=== PATIENT | male | born 1990 | race Caucasian/White ===

== ENCOUNTER 2021-10-07 08:53 | Day surgery (SDC) | payer SELFPAY ==
--- NOTE | 2021-10-03 16:29 | RAD REPORT ---
EXAM DESCRIPTION: RAD - Chest Pa And Lat (2 Views) - 10/03/2021 4:20 pm CLINICAL HISTORY: pre op COMPARISON: No comparisons FINDINGS: Lines: None. Lungs: No evidence of edema or pneumonia. Pleural: No significant pleural effusions or pneumothorax. Cardiac: The heart size is within normal limits. Bones: No acute fractures. Other: IMPRESSION: No acute cardiopulmonary disease.
[2021-10-07] MEDS ORDERED: Ringers Lactate 1,000 ML IV ONE (09:23)
[2021-10-07] MEDS ORDERED: propofoL 200 MG/20 ML VIAL IV ONE (09:26)
[2021-10-07] MEDS ORDERED: ROCURONIUM 50 MG/5 ML VIAL IV ONE ×2 (09:26→11:49)
[2021-10-07] MEDS ORDERED: LIDOCAINE 1% MPF 5 ML VIAL ONE (09:26)
[2021-10-07] MEDS ORDERED: FENTANYL CITR 100 MCG/2 ML ONE ×2 (09:26→11:27)
[2021-10-07] MEDS ORDERED: SUGAMMADEX SODIUM 200 MG/2 ML VIAL IV ONE (09:29)
[2021-10-07] MEDS ORDERED: MIDAZOLAM HCL 2 MG/2 ML INJ ONE ×2 (09:29→10:22)
[2021-10-07] MEDS ORDERED: CELECOXIB 100 MG CAPSULE ONE (09:52)
[2021-10-07] MEDS ORDERED: ACETAMINOPHEN 500 MG TAB ONE (09:52)
[2021-10-07] MEDS ORDERED: SCOPOLAMINE HYDROBROMIDE PATCH TD ONE (09:55)
[2021-10-07] MEDS: CLINDAMYCIN INJ 900 MG in NA CHLORIDE 0.9% 50 ML IV ONE ×3 (09:57→10:57)
[2021-10-07] MEDS ORDERED: LIDOCAINE 4% TOP SOLUTION ONE (10:40)
[2021-10-07] MEDS ORDERED: EPINEPHRINE/PF 1 MG/ML AMP ONE (10:43)
[2021-10-07] MEDS ORDERED: Mastisol Adhesive Liq ONE (10:44)
[2021-10-07] MEDS: LIDOCAINE 1% W/EPI 1:100,000 MDV 50 ML VIAL ONE ×2 (11:09→11:14)
[2021-10-07] MEDS ORDERED: OXYMETAZOLINE HCL 0.05% 15ML NAS ONE (11:41)
[2021-10-07] MEDS ORDERED: GLYCOPYRROLATE 0.2 MG/ML SYR ONE (12:47)
[2021-10-07] MEDS ORDERED: NEOSTIGMINE 1 MG/ML -5 ML ONE (12:47)
[2021-10-07] MEDS ORDERED: ONDANSETRON 4 MG/2 ML VIAL ONE (13:26)
[2021-10-07] MEDS ORDERED: dexAMETHasone 10 MG/ML VIAL ONE (13:26)
[2021-10-07] MEDS: FENTANYL CITR 100 MCG/2 ML ONE ×2 (13:35→13:40)
[2021-10-07 13:52] VITALS: TEMP 97.4; O2SAT 100
[2021-10-07 14:59] VITALS: BP 142/75
--- NOTE | 2021-10-08 19:13 | OP ---
Date of Procedure: 10/07/2021 Surgeon: MARY CONTI Primary Care Physician: Unknown. Preoperative Diagnoses: 1.Cervical lymphadenitis. 2.Uvula, right soft palate, and right base of tongue neoplasms-uncertain behavior. Postoperative Diagnoses: 1.Cervical lymphadenitis. 2.Uvula, right soft palate, and right base of tongue neoplasms-uncertain behavior. Procedures: 1.Microsuspension direct laryngoscopy with biopsies of right base of tongue, uvula, right soft palat e. 2.Excision of right level 1B lymph node. 3.Core biopsies taken from right level IIA lymph node. Anesthesia: General endotracheal anesthesia was administered. Epinephrine soaked nasal pledgets wer e used for hemostasis. Specimens: Obtained from uvula, right base of tongue, right soft palate, and right upper neck level 1B and level 2A were submitted to pathology for evaluation. Estimated Blood Loss: Less than 5 mL. Findings: Friable, indurated neoplasms involving the uvula, right soft palate and right base of tong ue. Enlarged lymph node involving level 1B of the right upper neck measuring approximately 3.0 x 2.0 cm. The patient also had a significantly enlarged right upper neck level 2 lymph node that was at l east 6 cm and matted to important structures of the deep neck, including the internal jugular vein an d possibly the carotid sheath. Complications: None. Disposition: Stable. The patient tolerated the procedure well. Indication For Procedure: The patient is a 31-year-old male who presented to my outpatient clinic wi th a gradually enlarging lymph node involving the right upper neck. CT scan showed multiple diffuse enlarged lymph nodes, not only involving that level of the neck at all levels of the neck. On exam, he had multiple palpable lymph nodes with the larger 1 involving the right level 2 neck as well as th e right level 1B neck. The examination also revealed neoplasms involving the uvula, right soft palat e and right base of tongue. These are indications to bring the patient to proceed for the above-ment ioned procedures. His condition has been refractory to multiple outpatient antibiotics. The patient had several questions that were answered. Risks versus benefits and complications were explained in detail and a consent form was signed which was placed in the chart. Description Of Procedure: The patient was transferred from the preoperative holding area to the oper ative suite by Department of Anesthesia, placed on the operating table supine, sedated and intubated in normal fashion. The table was rotated approximately 45 degrees and the patient's neck was flexed and his head was slightly extended. A bite guard was placed on his upper teeth for protection and th en a laryngoscope was introduced into the right oral commissure along the endotracheal tube and suspe nded from the [place] stand. A telescope was used to take pictures of the larynx. There was no evidenc e of laryngeal neoplasms including the true and false vocal folds, arytenoid complex, piriform sinuse s, posterior cricoid area. All areas were examined and found to be clean of any suspicious lesion. The scope was desuspended and the area of the uvula, right soft palate, and base of tongue were visua lized and it took multiple biopsies from each 1 of these areas and they were submitted for pathology evaluation. The left base of tongue was clean as was the epiglottis, vallecula, and oral dorsal tong ue. The scope was completely removed. Bimanual palpation exam was performed with no evidence of any other palpable neoplasms. I utilized a McIvor retractor to do the biopsies of the uvula and right s oft palate as I was able to gain better access to these areas with the McIvor retractor. Next, the McIvor retractor was removed and the patient was placed in the midline position. I had inf iltrated approximately 1% lidocaine with 1:100,000 epinephrine into the area of the right level 1B an d right level IIA areas where the biopsies and excision of a lymph node were to be performed. The pa tient was then sterilely prepped and draped. An incision was made over level 1B and level 2A with a #15 blade scalpel to the level of the platysma and then I switched to needlepoint electrocautery and divided the platysma utilizing that and then h emostasis was achieved with the needlepoint electrocautery. Once down to the subplatysmal compartmen t in the submandibular area, there was a large lymph node present. I dissected around the lymph node utilizing needlepoint electrocautery on the twentieth setting. I have made sure to make my incision at least 2 cm below the mandible in order to stay away from the marginal mandibular nerve. Dissecti on around the lymph node was successful with a needlepoint electrocautery and I was able to completel y remove it. Several vessels were ligated and cut and 3.0 silk was utilized for this part of the pro cedure. The lymph node was completely removed and placed into specimen cup. Hemostasis was achieved with needlepoint electrocautery. I then placed my attention to the large lymph node involving the r ight level 2A compartment. Several core biopsies were taken of the lymph node and submitted to patho logy in a specimen cup. Hemostasis was achieved with needlepoint electrocautery. This particular ly mph node was matted down to the sternocleidomastoid muscle as well as the deeper vessels including th e and what I suspect was the sheath of the internal jugular vein and possibly the carotid sheath. Th us, it was decided to take core biopsies as opposed to trying to remove this enlarged lymph node. Sa line irrigation was introduced into the neck wound and removed with suction Bovie. I then reapproxim ated the platysma with 4-0 Monocryl in a simple interrupted fashion followed by subcutaneous tissue r eapproximation with 4-0 Monocryl in a simple interrupted fashion. I then reapproximated the epidermi s and dermis with a 4-0 Monocryl in a subcuticular fashion. I did place a Ambrosio drain at the later al end of the incision and the [place] drain was a quarter-inch drain. The drain was secured to the neck and compressive dressing was placed. He tolerated procedure well and will be discharged home on analgesic and antibiotics and will follow up in 1-2 days for drain assessment and possible removal. NOEMI/JOHN Voice ID: [id number] Report ID: [id number]
== END 2021-10-07 14:59 | disposition home or self-care (01) ==
LOC: OR 08:53
PROVIDERS: ATTEND Otolaryngology Facial Plastic Surgery
PROC: 0CBM8ZX Excision of Pharynx, Via Natural or Artificial Opening Endoscopic, Diagnostic (ICD-10-PCS; principal; 2021-10-07 10:45)
PROC: 07D13ZX Extraction of Right Neck Lymphatic, Percutaneous Approach, Diagnostic (ICD-10-PCS; 2021-10-07 10:45)
DX: C01 Malignant neoplasm of base of tongue (principal); C79.89 Secondary malignant neoplasm of other specified sites; C77.0 Secondary and unspecified malignant neoplasm of lymph nodes of head, face and neck; D37.05 Neoplasm of uncertain behavior of pharynx; I88.1 Chronic lymphadenitis, except mesenteric; Z20.822 Contact with and (suspected) exposure to COVID-19
CPT/HCPCS: 71046; 88302; 88305; J0171; J1100; J2250; J2405; J2704; J2710; J3010; J7120; U0003